=== PATIENT | female | born 1955 | race Caucasian/White ===

== ENCOUNTER → 2023-05-07 09:03 | Outpatient (REF) | payer SELFPAY | LOC: HWRAD 09:03 | PROVIDERS: ATTENDING PHYSICIAN Internal Medicine | DX: E78.5 Hyperlipidemia, unspecified (principal) | CPT/HCPCS: 75571 ==

== ENCOUNTER → 2023-05-15 08:27 | Outpatient (REF) | payer OTHER, SELFPAY | LOC: HWWDC 08:27 | PROVIDERS: ATTENDING PHYSICIAN Internal Medicine | DX: Z12.31 Encounter for screening mammogram for malignant neoplasm of breast (principal) | CPT/HCPCS: 77063; 77067 ==

== ENCOUNTER → 2023-07-12 08:44 | Outpatient (REF) | payer OTHER, SELFPAY | LOC: HWRAD 08:44 | PROVIDERS: ATTENDING PHYSICIAN Internal Medicine | DX: R10.2 Pelvic and perineal pain (principal); R10.33 Periumbilical pain | CPT/HCPCS: 76830; 76856 ==

== ENCOUNTER → 2024-01-16 09:32 | Outpatient (REF) | payer OTHER, SELFPAY | LOC: HWRAD 09:32 | PROVIDERS: ATTENDING PHYSICIAN Internal Medicine | DX: R91.1 Solitary pulmonary nodule (principal); R10.9 Unspecified abdominal pain | CPT/HCPCS: 71250; 74178; Q9967 ==

== ENCOUNTER 2024-08-13 12:47 | Emergency (ER) | payer OTHER, SELFPAY ==
[2024-08-13 12:53] VITALS: BP 180/100
[2024-08-13 13:37] LABS: ALT (SGPT) 28 U/L (0-35); AST (SGOT) 25 U/L (14-36); Albumin 4.7 g/dl (3.5-5.0); Alkaline Phosphatase 60 U/L (38-126); Blood Urea Nitrogen 12 mg/dl (7-17); Carbon Dioxide 30 mmol/L (22-30); Chloride 105 mmol/L (98-107); Glucose 114 mg/dl (70-99); Sodium 144 mmol/L (135-145); Total Bilirubin 0.9 mg/dl (0.2-1.3); Total Protein 7.8 g/dl (6.3-8.2); eGFR > 60.00
[2024-08-13 13:41] LABS: Troponin I < 0.012 ng/ml
--- NOTE | 2024-08-13 14:22 | ED.GENMED ---
History of Present Illness
General
Chief Complaint: Chest Pain
Source: patient
Exam Limitations: none
Time Seen by Provider: 08/13/24 14:19
History of Present Illness
History of Present Illness:
68yoF with a history of hypertension and hyperlipidemia presenting for evaluation of chest pain. Patient was getting ready to go into the shower around 10 AM this morning when she suddenly began to experience pain in her jaw. This was followed by
a tightness/pressure in her chest which radiated in between her breasts. She felt dizzy, nauseous, and broke out into a slight sweat during this episode. She did some deep breathing and symptoms resolved after about 30 minutes. She has had no
further chest pain since then. Patient continues to feel slightly shaky but is otherwise asymptomatic. No shortness of breath, palpitation, leg swelling. Both of her parents from heart disease. Her father had a CABG in his 60s and
her mother from an AK in her 70s. Patient last saw a sales office assistant about 10 years ago and stress test was normal at that time. No tobacco use.
Phy Exam
General Physical Exam
General Presentation: well appearing and no apparent distress
General Skin: warm and dry
General Habitus: normal
General Mental: alert
ENT Exam
ENT Exam: normocephalic
Cardiovascular Exam
Cardiovascular Exam: regular rate/rhythm, no edema, no murmur and normal peripheral pulses (2+ radial pulses bilaterally)
Pulmonary Exam
Pulmonary Exam: lungs clear, no respiratory distress, no rales, no crackles, no rhonchi and no wheezing
Neurological Exam
Neurological Exam: alert
[place] Coma Scale
Eye Opening: Spontaneous
Verbal Response: Oriented
Motor Response: Obeys Commands
GCS Total Score: 15
Skin Exam
Skin Exam: normal color and warm/dry
Psychiatric Exam
Psychiatric Exam: normal mood/affect
Scores
Heart Score for Chest Pain Patients
STEMI patient?: No
History: Moderately Suspicious
ECG: Normal
Age: >/= 65 years
Risk Factors: >/= 3 Risk Factors or History of CAD
Troponin: </= Normal Limit
Heart Score for Chest Pain Patients: 5
Heart Score Risk: 20.3% MACE over next 6 weeks
Course
Orders/Labs/Results
Orders:
Orders
08/13/24 12:49
Electrocardiogram (*1) Urgent
Reason for Study: Chest Pain
EKG- Treatment ONCE
08/13/24 12:59
Comprehensive Metabolic Panel Urgent
Troponin I Urgent
08/13/24 14:32
Cardiac Monitoring- Treatment ONCE
08/13/24 14:33
EKG- Treatment ONCE
CR Chest - 2 Views Urgent
Comment:
Reason For Exam: CP
08/13/24 16:15
Electrocardiogram (*1) Urgent
Reason for Study: Chest Pain
08/13/24 16:20
Complete Blood Count/With Diff Urgent
Troponin I Urgent
Abnormal Lab Results
08/13/24 08/13/24
12:59 16:20
MCH 31.5 H pg
(27.0-31.0)
MPV 10.5 H fL
(7.4-10.4)
Glucose 114 H mg/dl
(70-99)
08/13/24 16:20
08/13/24 12:59
Vital Signs
Initial and Last Documented VS:
Initial Vital Signs
Temp Pulse Resp BP Pulse Ox
98.0 F 84 16 180/100 99
08/13/24 12:53 08/13/24 12:53 08/13/24 12:53 08/13/24 12:53 08/13/24 12:53
Last Documented Vital Signs
Temp Pulse Resp BP Pulse Ox
98.0 F 69 17 137/67 99
08/13/24 12:53 08/13/24 16:15 08/13/24 16:15 08/13/24 17:00 08/13/24 17:15
MDM/Problems Addressed
Differential Diagnosis Includes:
68yoF here after an episode of chest/jaw pain at 10am this morning. Associated with nausea, dizziness, and sweating. Resolved after 30 minutes. No active chest pain during exam. Hx of HTN, HLD, and family history of CAD. She is hypertensive with
otherwise stable vitals. Exam reassuring. Differential diagnosis includes but is not limited to: ACS, arrhythmia, panic attack, doubt PE/aortic dissection given resolution of symptoms
Initial ED plan: Cardiac labs and EKG obtained in triage. EKG shows NSR without ischemic changes and troponin WNL. Will check repeat troponin/EKG and CXR.
*EKG
Interpreted by ED Provider?: Yes
EKG Intrepretation Date: 08/13/24
Heart Rate: 89
Rate: normal
Rhythm: sinus
[place]: normal axis
Interval: normal interval
QRS Pattern: normal QRS
Ischemia: no ischemia
*Critical Care Note
Total Time (30-74mins, 75-104mins- exclusive of procedures): Not Applicable
Update Note
Update Note:
Repeat EKG and troponin unchanged. Chest x-ray is clear. Patient remains chest pain-free on reassessment and she is eager to go home. No indication for hospitalization. Will refer to cardiology given her risk factors and strong family history.
Also advised follow-up with PCP. ED return precautions reviewed. Patient discharged in stable condition.
ED Attending Note
-
Portions of this chart may have been created with voice recognition software.� Occasional wrong word or��sound alike� substitutions may have occurred due to the inherent limitations of voice recognition software.
Discharge Plan
Departure
Patient Disposition: Home (Routine Discharge)
Date of Disposition: 08/13/24
Time of Disposition: 17:28
Patient with high blood pressure during this ER visit?: Yes
Discharge Problem:
Chest pain
Instructions: Chest pain
Referrals:
Shay Katz MD [Active] -
Day Whittington DO [Family Provider] -
Activity Restrictions/Additional Instructions:
Please follow-up with your family doctor and cardiology. Return to the ER with any new or worsening symptoms.
Interventions
Interventions:
*Risk Screen - Suicide Last Done: 08/13/24 15:43
*General Assessment Last Done: 08/13/24 15:43
*Neglect/Abuse Screening Last Done: 08/13/24 17:44
*ED- Fall Risk Assessment Last Done: 08/13/24 15:43
*ED COVID-19 Vaccine History Last Done: 08/13/24 15:43
*Nursing Disposition Last Done: 08/13/24 17:44
ED- Cardiac Assessment Last Done: 08/13/24 15:43
Discharge Date and Time
Discharge Date/Time: 08/13/24 17:46
Print Language: NIUEAN
[2024-08-13 15:26] VITALS: BP 148/76
[2024-08-13 15:47] VITALS: BMI 31.0
[2024-08-13 16:00] VITALS: BP 147/78
[2024-08-13 16:36] VITALS: BP 161/71
[2024-08-13 16:42] LABS: % Basophils 0.7 % (0-2); % Eosinophils 2.5 % (0-6); % Immature Granulocytes 0.3 % (0-0.5); % Lymphocytes 33.4 % (20.5-51.1); % Monocytes 8.4 % (1.7-9.3); % Neutrophils 54.7 % (42.2-75.2); Absolute Basophils 0.1 10^3/uL (0-0.2); Absolute Eosinophils 0.2 10^3/uL (0-0.7); Absolute Lymphocytes 2.5 10^3/uL (1.2-3.4); Absolute Monocytes 0.6 10^3/uL (0.1-0.6); Absolute Neutrophils 4.2 10^3/uL (1.4-6.5); Hematocrit 41.6 % (37.0-47.0); Hemoglobin 14.8 g/dL (12.0-16.0); Mean Corp Hgb Conc. 35.6 g/dL (33.0-37.0); Mean Corpuscular Hgb 31.5 pg (27.0-31.0); Mean Corpuscular Volume 88.5 fL (81.0-99.0); Mean Platelet Volume 10.5 fL (7.4-10.4); Nucleated Red Blood Cells % 0 %; Platelet Count 248 10^3/uL (130-400); Red Cell Dist. Width 12.6 % (11.5-14.5); White Blood Cell Count 7.6 10^3/uL (4.8-10.8)
[2024-08-13 17:00] VITALS: BP 137/67
[2024-08-13 17:05] LABS: Troponin I < 0.012 ng/ml
== END 2024-08-13 17:46 | disposition home or self-care (01) ==
LOC: EMR 12:47
PROVIDERS: Emergency Medicine; Physician Assistant; EMERGENCY PHYSICIAN Emergency Medicine; FAMILY PHYSICIAN Internal Medicine
DX: R07.89 Other chest pain (principal); R42 Dizziness and giddiness; R11.0 Nausea; R68.84 Jaw pain; R61 Generalized hyperhidrosis; I10 Essential (primary) hypertension; E78.5 Hyperlipidemia, unspecified; Z82.49 Family history of ischemic heart disease and other diseases of the circulatory system; Z88.8 Allergy status to other drugs, medicaments and biological substances
CPT/HCPCS: 99285; 71046; 80053; 84484; 85025; 93005

== ENCOUNTER → 2025-02-04 13:19 | Outpatient (REF) | payer OTHER, SELFPAY | LOC: HWRAD 13:19 | PROVIDERS: ATTENDING PHYSICIAN Internal Medicine | DX: R91.8 Other nonspecific abnormal finding of lung field (principal); M25.511 Pain in right shoulder | CPT/HCPCS: 71250; 73030 ==